=== PATIENT | female | born 1975 | race Caucasian/White ===

== ENCOUNTER 2017-01-28 20:29 | Emergency (ER) | payer SELFPAY ==
[~2017-01-28] VITALS: Ht 160 cm; Wt 80.1 kg
[2017-01-28 20:54] VITALS: BP 138/81
--- NOTE | 2017-01-29 04:42 | NUR ---
PATIENT LEFT WITHOUT BEING SEEN BY DR. BARRERA. NO FURTHER CARE PROVIDED FOR PATIENT.
== END 2017-01-29 04:42 | disposition left against medical advice (07) ==
LOC: MED 20:29
DX: H92.01 Otalgia, right ear (principal); Z53.21 Procedure and treatment not carried out due to patient leaving prior to being seen by health care provider